=== PATIENT | female | born 1955 | race Caucasian/White ===

== ENCOUNTER → 2018-12-29 | Day surgery (SDC) | payer OTHER ==
[~2018-12-29] MED LIST: ASPIR 8181 MG PO; BETA CAROT25000 UNIT PO; BIOTENE PO; CALCET TABLET1 EACH PO; CO Q10100 MG PO; CRANBERRY200 MG PO; FENTANYL CITRATE/PF 100MCG/2 ML INJ ONE; FLAXSEED OIL1000 MG PO; FOLIC ACID PO; GLIPIZIDE5 MG PO; GLYXAMBI PO; IRON PO; LOSARTAN POTAS100 MG PO; LOVASTATIN20 MG PO; MAGNESIUM OXID400 MG PO; MIDAZOLAM HCL 2 MG/2 ML VIAL ONE; NEXIUM40 M1 PO; OMEGA 3 1,0001 EACH PO; OR PHACO EYE KIT ONE; PREOP PHACO EYE KIT ONE; SUPER B-50 COM1 EAC1 PO; VIT B PO; VIT B12 PO; VIT C PO; VIT D3 PO; VIT E PO
--- OUTSIDE RECORDS SUMMARY | 2018-12-29 10:55 | XMS REPORT ---
Author [facility] Address Unknown Phone Unavailable Care Team Providers Care Bid Analyst Name Role Phone Unavailable Unavailable Payers Payer Name Policy Type Policy Number Effective Date Expiration Date Problems This patient has no known problems. Allergies, Adverse Reactions, Alerts Allergy Name Allergy Type Status Severity Reaction(s) Onset Date Inactive Date Treating Clinician Comments Penicillins DA Active U 2016-04-15 00:00:00 codeine DA Active U 2016-04-15 00:00:00 Medications This patient has no known medications.
[2018-12-29 13:30] VITALS: BP 114/58
== END | disposition home or self-care (01) ==
LOC: OR 10:48
PROVIDERS: ATTEND Ophthalmology
DX: H25.11 Age-related nuclear cataract, right eye (principal); E11.9 Type 2 diabetes mellitus without complications; Z79.84 Long term (current) use of oral hypoglycemic drugs; K21.9 Gastro-esophageal reflux disease without esophagitis; E78.5 Hyperlipidemia, unspecified; F32.9 Major depressive disorder, single episode, unspecified; Z88.5 Allergy status to narcotic agent; Z88.0 Allergy status to penicillin; Z79.82 Long term (current) use of aspirin
CPT/HCPCS: 36415; 66984; 82948; J2250

== ENCOUNTER → 2019-09-29 | Outpatient (CLI) | payer MEDICARE, OTHER ==
[~2019-09-29] MED LIST changes: -FENTANYL CITRATE/PF 100MCG/2 ML INJ ONE; -MIDAZOLAM HCL 2 MG/2 ML VIAL ONE; -OR PHACO EYE KIT ONE; -PREOP PHACO EYE KIT ONE
--- NOTE | 2019-09-29 15:36 | Diagnostic Imaging Report ---
PROCEDURE: X-RAY MODIFIED BARIUM SWALLOW COMPARISON: None. INDICATION: Dysphasia Radiation Details: Fluoroscopy time: 2.5 minutes Cumulative dose: 4.0 mGy DISCUSSION: Fluoroscopic examination was performed in conjunction with speech pathology during swallowing a variety of thin and thick liquid consistencies. Provided images demonstrate laryngeal penetration but no aspiration. CONCLUSION: Modified barium swallow demonstrating laryngeal penetration but no aspiration. Please refer to the speech pathology report for further details. Signed by: Johana Meza MD on 09/29/2019 3:32 PM
== END ==
LOC: DX 12:36
PROVIDERS: ATTEND Otolaryngology
DX: R13.10 Dysphagia, unspecified (principal); K21.0 Gastro-esophageal reflux disease with esophagitis
CPT/HCPCS: 74230

== ENCOUNTER → 2020-05-18 | Day surgery (SDC) | payer MEDICARE, OTHER ==
[2020-05-15 12:38] LABS: BASOPHILS % 0.4 % (0.0-1.0); EOSINOPHILS # (AUTO) 0.1 (0.0-0.4); EOSINOPHILS % 1.1 % (0.0-6.0); HEMOGLOBIN 13.8 g/dL (12.0-16.0); LYMPHOCYTES # (AUTO) 2.9 (1.0-3.2); LYMPHOCYTES % 30.6 % (18.0-39.1); MEAN CORPUSCULAR HEMOGLOBIN 28.3 pg (28-32); MEAN CORPUSCULAR HGB CONC 32.9 g/dL (31-35); MEAN CORPUSCULAR VOLUME 86.1 fL (81-99); MONOCYTES # (AUTO) 0.7 (0.2-0.8); MONOCYTES % 7.1 % (4.4-11.3); NEUTROPHILS # (AUTO) 5.7 (2.1-6.9); NEUTROPHILS % 60.4 % (38.7-80.0); PLATELET COUNT 136 x10e3/uL (140-360); RED BLOOD COUNT 4.88 x10e6/uL (3.6-5.1); RED CELL DISTRIBUTION WIDTH 12.6 % (11.7-14.4)
[2020-05-15 12:53] LABS: ANION GAP 13.1 mmol/L (8-16); CREATININE, SERUM 1.07 mg/dL (0.57-1.11); POTASSIUM 5.1 mmol/L (3.5-5.1)
--- NOTE | 2020-05-15 13:59 | Diagnostic Imaging Report ---
X-ray chest PA and lateral views Comparison: None. History: Preoperative Findings: Central airways unremarkable. Cardiomediastinal silhouettes unremarkable. Atherosclerotic aorta. No pleural effusion or pneumothorax. No focal lung disease. Upper abdomen unremarkable. Degenerative changes in the thoracic spine. Impression: No acute cardiopulmonary disease. Signed by: Jose Rios MD on 05/15/2020 1:55 PM
[~2020-05-18] MED LIST changes: +ASPIRIN81 MG PO; +CALCIUM600 MG PO; +CLINDAMYCIN PHOS 900MG/ 50ML 50 ML IV ONE; +DEXAMETHASONE SOD PHOS INJ 4 MG/ML VIAL ONE; +ETOMIDATE 2 MG/ML 10 ML INJ IV ONE; +FENTANYL CITRATE/PF 100MCG/2 ML INJ ONE; +FLAX SEED OIL1000 MG PO; +GLYXAMBI 25 MG1 EACH PO; +INSULIN REGULAR, HUMAN 100 UNIT/1 ML 3ML VIAL ONE; +IRBESARTAN150 MG PO; +LIDOCAINE HCL 2% LOCAL INJ 5 ML SDV VIAL INJ ONE; +MIDAZOLAM HCL 2 MG/2 ML VIAL ONE; +OMEPRAZOLE40 MG PO; +ONDANSETRON HCL INJ 2MG/ML 2ML 2 MG/ML VIAL ONE; +SEVOFLURANE INHAL SOLN 250 ML PEN BTL ONE; +SIMVASTATIN20 MG PO; +TRULICITY0.75 MG/0. SC
--- NOTE | 2020-05-18 08:05 | Operative Report ---
DATE OF PROCEDURE: 05/18/2020 SURGEON: Breanna Riojas DPM PREOPERATIVE DIAGNOSES: 1. Left heel spur. 2. Left plantar fasciitis. POSTOPERATIVE DIAGNOSES: 1. Left heel spur. 2. Left plantar fasciitis. PLANNED PROCEDURE: Left excision of heel spur with plantar fasciotomy. ANESTHESIA: General with a postoperative block consisting of 15 mL 0.5% Marcaine plain mixed with 1 mL of dexamethasone phosphate. HEMOSTASIS: Pneumatic thigh tourniquet set at 350 mmHg for a total time of approximately 20 minutes. MATERIALS: 3-0 Vicryl and 4-0 nylon. One TLS drain ESTIMATED BLOOD LOSS: Less than 10 mL. PATHOLOGY: None. PROCEDURE NOTE: The patient was seen in the preoperative waiting room where the correct procedure and site were identified. The patient was brought into the operating room and placed on the operating table in the supine position. General anesthesia was initiated. At this time, a well-padded pneumatic tourniquet was placed about the patient's left thigh. The left foot ankle leg was scrubbed, prepped, and draped in the usual aseptic manner. The left foot, ankle, and leg was exsanguinated with an Esmarch bandage and a pneumatic thigh tourniquet was inflated to 350 mmHg for a total time of approximately 20 minutes. Attention was directed to the medial inferior aspect of the patient's left heel where a 4 cm linear incision was made. Incision was carried through the subcutaneous tissues them from deep or underlying structures. All vital and neurovascular structures were identified retracted medially and laterally. All bleeders were cauterized or ligated as deemed necessary. At this time, the plantar fascia was easily identified dorsally and plantarly utilizing Metzenbaum scissors. It was cut at the insertion approximately 1/[address] the plantar aspect of the foot. Next, the dissection was carried down to have good visualization of the inferior calcaneal bone spur. Utilizing an osteotome and mallet as well as a rongeur, the bone spur was resected and passed off to the back table. Next, utilizing a rasp, it was smoothed to anatomical alignment and this was confirmed via intraoperative fluoroscopy. The wound was then copiously irrigated with sterile saline. Deep tissue was reapproximated with 3-0 Vicryl per manufacture protocol. One TLS drain was placed and noted to be functioning. The incision site was reapproximated with a simple interrupted simple interlocking suture with 4-0 nylon. The incision site was then dressed with an Adaptic, 4x4s, Kerlix, Zachary wrap, and a postop shoe. The patient tolerated the procedure and anesthesia well. The patient was transferred to the postop recovery unit with vital signs stable and vascular status intact. The patient was monitored there for a short period time before being sent home with the following written and oral instructions. 1. Keep the dressing clean, dry, and intact. 2. The patient is to remain nonweightbearing to the left lower extremity to avoid any ambulation until being seen in the office. 3. The patient is given the office number and instructed to contact us if any problems arise. MICHAEL Haas/LUIS /[id number]
[2020-05-18 09:00] VITALS: BP 148/76
== END | disposition home or self-care (01) ==
LOC: OR 05:10
PROVIDERS: ATTEND Podiatrist Foot & Ankle Surgery
DX: M77.32 Calcaneal spur, left foot (principal); M72.2 Plantar fascial fibromatosis; I10 Essential (primary) hypertension; E78.00 Pure hypercholesterolemia, unspecified; E11.9 Type 2 diabetes mellitus without complications; E66.9 Obesity, unspecified; Z88.6 Allergy status to analgesic agent; Z88.0 Allergy status to penicillin; Z01.810 Encounter for preprocedural cardiovascular examination; Z01.812 Encounter for preprocedural laboratory examination; Z01.818 Encounter for other preprocedural examination; Z11.59 Encounter for screening for other viral diseases; Z79.82 Long term (current) use of aspirin; Z79.84 Long term (current) use of oral hypoglycemic drugs; Z87.891 Personal history of nicotine dependence
CPT/HCPCS: 28119; 36415 ×2; 71046; 80048; 82948; 85025; 87635; 93005; J1100; J1817; J2001; J2250; J2405; J3010

== ENCOUNTER 2021-06-12 13:24 | Outpatient (RCR) | payer MEDICARE, OTHER ==
[~2021-06-12 13:24] MED LIST changes: -CLINDAMYCIN PHOS 900MG/ 50ML 50 ML IV ONE; -DEXAMETHASONE SOD PHOS INJ 4 MG/ML VIAL ONE; -ETOMIDATE 2 MG/ML 10 ML INJ IV ONE; -FENTANYL CITRATE/PF 100MCG/2 ML INJ ONE; -INSULIN REGULAR, HUMAN 100 UNIT/1 ML 3ML VIAL ONE; -LIDOCAINE HCL 2% LOCAL INJ 5 ML SDV VIAL INJ ONE; -MIDAZOLAM HCL 2 MG/2 ML VIAL ONE; -ONDANSETRON HCL INJ 2MG/ML 2ML 2 MG/ML VIAL ONE; -SEVOFLURANE INHAL SOLN 250 ML PEN BTL ONE
== END 2021-06-23 ==
LOC: PT 13:24
PROVIDERS: ATTEND Specialist
DX: S39.012A Strain of muscle, fascia and tendon of lower back, initial encounter (principal); M70.62 Trochanteric bursitis, left hip